=== PATIENT | female | born 1935 | race Caucasian/White ===

== ENCOUNTER 2020-04-11 10:03 | Inpatient (IN) | payer MEDICARE ==
[2020-04-11] MEDS ORDERED: PHENYLEPHRINE-NS 100 MCG/ML 10 ML SYRINGE ONE (10:07)
[2020-04-11] MEDS ORDERED: Dexamethasone 20 MG/5 ML VIAL ONE (10:07)
[2020-04-11] MEDS ORDERED: Rocuronium Bromide 10 MG/ML (10ML VIAL) ONE (10:07)
[2020-04-11] MEDS ORDERED: EPHEDRINE 25 MG/5 ML SYRINGE ONE (10:07)
[2020-04-11] MEDS ORDERED: Ondansetron PF 4 MG/2 ML Vial ONE (10:07)
[2020-04-11] MEDS ORDERED: PROPOFOL 200 MG/20 ML VIAL ONE (10:07)
[2020-04-11] MEDS ORDERED: Morphine 4 MG/ML VIAL ONE (11:04)
[2020-04-11] MEDS ORDERED: Fentanyl 100 MCG/2 ML VIAL ONE ×2 (11:32→13:43)
[2020-04-11] MEDS ORDERED: Neomycin-Polymyxin 1 ML AMP ONE (11:50)
[2020-04-11] MEDS ORDERED: Ondansetron HCl/PF 4 MG/2 ML Vial IVP PRN (12:13)
[2020-04-11] MEDS ORDERED: SUGAMMADEX SODIUM 200 MG/2 ML VIAL ONE (13:13)
[2020-04-11] MEDS ORDERED: Bupivacaine HCl 0.5%/Epinephrine 1:200,000/PF 30 ml Vial ONE (13:14)
[2020-04-11] MEDS ORDERED: Fleet Enema 133 ML BOT PR PRN (13:34)
[2020-04-11] MEDS ORDERED: Milk Of Magnesia 30 ML UDCUP PO PRN (13:34)
[2020-04-11] MEDS ORDERED: Ondansetron PF 4 MG/2 ML Vial IVP PRN ×2 (13:34→14:12)
[2020-04-11] MEDS ORDERED: Cepastat Lozenges 1 LOZ PO PRN (13:34)
[2020-04-11] MEDS ORDERED: Bisacodyl 10 MG SUPP PR PRN (13:34)
[2020-04-11] MEDS ORDERED: Ondansetron ODT 4 MG TAB PO PRN ×2 (13:34→14:12)
[2020-04-11] MEDS ORDERED: Sodium Chloride 0.9% 1,000 ML IV SCH (13:45)
[2020-04-11] MEDS ORDERED: hydrALAZINE 20 MG/ML VIAL SLOW IVP PRN (14:12)
[2020-04-11] MEDS ORDERED: Morphine 4 MG/ML VIAL SLOW IVP PRN (14:12)
[2020-04-11] MEDS ORDERED: Ketorolac Tromethamine 30 MG/ML VIAL IVP SCH ×2 (14:12→18:00)
[2020-04-11] MEDS ORDERED: Dextrose 5% in Water 1,000 ML IV PRN (14:12)
[2020-04-11] MEDS ORDERED: Morphine 2 MG/ML VIAL SLOW IVP PRN (14:12)
[2020-04-11] MEDS ORDERED: Dextrose 50% Abboject 50 ML SYRINGE SLOW IVP PRN (14:12)
--- NOTE | 2020-04-11 14:14 | CON ---
DATE OF CONSULTATION: 04/11/2020 HISTORY OF PRESENT ILLNESS: The patient is an 85-year-old white female, who lives at a custodial. She fell and injured her left hip area and had immediate pain in the left hip with some pain into the left buttocks and thigh. The patient was initially seen at [place]. X-ray showed an intertrochanteric fracture of the left proximal femur. There are no other complaints elsewhere. She was transferred here for further evaluation and management. PAST MEDICAL HISTORY: Medical illnesses: Hypothyroidism, hypertension, gout, dementia. CURRENT MEDICATIONS: 1. Allopurinol. 2. Baby aspirin a day. 3. Donepezil. 4. Levothyroxine. 5. Memantine. 6. Lisinopril and hydrochlorothiazide. PAST SURGICAL HISTORY: Hysterectomy. ALLERGIES: SOY LECITHIN. PHYSICAL EXAMINATION: GENERAL: The patient is pleasant female. She is able to cooperate with the exam. VITAL SIGNS: On arrival to the emergency room, temperature 97.8, pulse 84, respiratory rate 22, blood pressure 158/87. HEENT: Unremarkable for age. Cranial nerves 2 through 12 grossly intact. NECK: Has good range of motion without pain. LUNGS: Clear bilaterally. HEART: Regular rate and rhythm. ABDOMEN: Soft and nontender. Bowel sounds positive. : Not done. EXTREMITIES: The patient able to move both upper extremities without pain. Any intensive movement of the left lower extremity causes pain in the left hip. The patient is able to flex and extend her left ankle and toes well and has peripheral pulses. IMPRESSION: 1. Intertrochanteric fracture of the left hip. 2. Hypertension. 3. Dementia. 4. Gout. 5. Hypothyroidism. PLAN: The patient will require open reduction and internal fixation of the intertrochanteric fracture of the left hip. I will plan on using a trochanteric fixation nail. I discussed this with the patient, but also her daughter who has power of family law attorney and they agreed to the procedure. Job ID: [id number]
--- NOTE | 2020-04-11 15:27 | OP ---
DATE OF PROCEDURE: 04/11/2020 PREOPERATIVE DIAGNOSIS: Intertrochanteric fracture of the left hip. POSTOPERATIVE DIAGNOSIS: Intertrochanteric fracture of the left hip. PROCEDURE PERFORMED: Open reduction and internal fixation of intertrochanteric fracture of the left hip utilizing a trochanteric fixation nail. ANESTHESIA: General. DESCRIPTION OF PROCEDURE: The patient was given preoperative IV antibiotics, taken to the operating room, placed in supine position. Satisfactory general anesthesia was performed. The patient was then placed on the fracture table and all bony prominences were well padded. The traction was applied to a well-padded left foot and ankle. The lateral aspect of the left hip and thigh was sterilely prepped and draped in usual fashion. A 3-inch incision was made proximal to the greater trochanter, and under fluoroscopic visualization, a guidewire was placed through the greater trochanter into the proximal femur. It was then over-reamed and a [employer] trochanteric fixation nail that measured 11 mm in diameter x 170 mm in length was impacted through the greater trochanteric region, across the fracture and into the proximal aspect of the femoral shaft. Through a separate incision, using the guide, hole was made with the drill guide to the lateral aspect of the hip through the proximal aspect of the nail into the femoral neck and head. This was verified with C-arm. Appropriate sized nail was measured and a 95 mm helical blade was inserted through the proximal aspect of the nail and into the femoral neck and head and this was locked down with the locking device in the proximal aspect of the nail. A 5.0 locking screw was placed in the distal nail as well as the femur to provide additional stability. C-arm verified good placement of the screws and the columba and good alignment of the intertrochanteric fracture. Two wounds were then irrigated with antibiotic solution and then closed using #2 Vicryl for the deeper tissue including the iliotibial band, 0 Vicryl for the fat and subcutaneous tissue, and the skin was closed skin mike. Total of 30 mL of 0.5% Marcaine with epinephrine was utilized into the two incisions. Sterile dressing was applied. The patient was taken off the fracture table. She was awakened, extubated, and transferred to recovery room in stable condition. ESTIMATED BLOOD LOSS: 100 mL. COMPLICATIONS: None. Job ID: [id number]
--- NOTE | 2020-04-11 16:03 | RAD ---
LEFT HIP TWO VIEWS: History: Intraoperative films. FINDINGS: These show open reduction and internal fixation of intertrochanteric fracture with gamma type nail an d short stem intermedullary columba. IMPRESSION: Post op changes related to fixation of intertrochanteric fracture. POS: CRUZ
[2020-04-11] MEDS: Sodium Chloride 0.9% 1,000 ML IV SCH (16:36)
[2020-04-11] MEDS: Ketorolac Tromethamine 30 MG/ML VIAL IVP SCH ×2 (16:38→17:06)
[2020-04-11 17:43] VITALS: BMI 33.2
[2020-04-11] MEDS ORDERED: Cyclobenzaprine 10 MG TAB PO PRN (18:23)
[2020-04-11] MEDS ORDERED: traMADol HCl 50 MG TAB PO PRN (18:23)
[2020-04-11] MEDS: Ibuprofen 600 MG TAB PO SCH (18:30)
[2020-04-11] MEDS: Acetaminophen 325 MG TAB PO SCH ×2 (18:30→23:08)
--- NOTE | 2020-04-11 18:30 | HP ---
REQUESTING PHYSICIAN: Dr. Yepez. ATTENDING SURGEON: Dr. Mcdonough. CONSULTATIONS: Orthopedics, Dr. Pritchett. HISTORY OF PRESENT ILLNESS: The patient is an 85-year-old woman, who lives in a chcf in [place]. She reportedly had a fall this morning when she got up to go to the bathroom. She was able to contact her daughter, who notified EMS. She was brought to the emergency department in [place], where she underwent evaluation and examination and was noted to have a left intertrochanteric femur fracture, at which time, they transferred to our facility for admission and orthopedic evaluation. The patient denied loss of consciousness. Daughter states that she was acting appropriately and at baseline on the telephone and has had no changes since arriving at our facility. ALLERGIES: SOY AND LECITHIN. CURRENT MEDICATIONS: Allopurinol, baby aspirin, donepezil, HCTZ, levothyroxine, memantine. PAST MEDICAL HISTORY: Recurrent bladder infections, DJD, benign paroxysmal positional vertigo, dementia, hypertension, hypothyroid, and idiopathic gout. PAST SURGICAL HISTORY: Hysterectomy. PRIMARY CARE PROVIDER: Dr. Oscar Soares. SOCIAL HISTORY: The patient lives in a chcf/assisted living. She drinks wine daily. Denies drug or alcohol use. REVIEW OF SYSTEMS: A 10-point review of systems is negative unless otherwise stated. PHYSICAL EXAMINATION: VITAL SIGNS: Blood pressure 158/87, heart rate 84, respirations 22, oxygen saturation 99% on room air, and temperature is 97.8. GENERAL: The patient is resting comfortably in bed. She is awake, alert, conversant, and appropriate. Noah Coma Scale is 15. HEENT. Head is normocephalic and atraumatic. Eyes, extraocular motions are intact. PERRLA bilaterally. Ears are atraumatic without discharge. Nose is atraumatic without discharge. Oropharynx is clear. NECK: Nontender. Trachea is midline with no JVD. CHEST: Clear to auscultation with good inspiratory and expiratory effort. HEART: Regular rate and rhythm. ABDOMEN: Soft, flat, and nontender with active bowel sounds. EXTREMITIES: Neurovascularly intact x4. PELVIS: Stable with tenderness to palpation to the left hip consistent with her fracture. BACK: By report is atraumatic and nontender. LABORATORY FINDINGS: White blood cell count 7.9, hemoglobin 17.3, hematocrit 54.2, platelets 212. Sodium 144, potassium 3.8, chloride 104, CO2 of 28, BUN 8, creatinine 0.6, glucose 103. LFTs are unremarkable. Urinalysis is unremarkable. ASSESSMENT AND PLAN: 1. Status post ground level fall, transfer from [place]. 2. Left intertrochanteric femur fracture, will be evaluated by Dr. Pritchett with likely surgery today. 3. History of benign paroxysmal positional vertigo, dementia, hypertension, hypothyroid, and idiopathic gout. PLAN: Plan will be to admit the patient to the surgical floor. We will continue her n.p.o. status with plans for operative intervention today. Postoperatively, we will do physical and occupational therapy. Continue pain control, pulmonary toilet, gastritis and mechanical VTE prophylaxis and discuss placement at that time. The patient was evaluated in the emergency department with Dr. Mcdonough prior to this dictation. Job ID: [id number]
[2020-04-11 20:00] LABS: SARS-CoV-2 NAA Rapid Test Not Detected (NotDetected)
[2020-04-11] MEDS: CEFAZOLIN 2 GM in Premix Bag 1 BAG IVPB SCH (21:24)
[2020-04-11] MEDS: Ferrous Gluconate 324 MG TAB PO SCH (21:25)
[2020-04-11] MEDS: Aspirin 325 MG TAB PO SCH (21:25)
[2020-04-11] MEDS: Senokot S 8.6-50 MG TAB PO SCH (21:25)
[2020-04-11] MEDS: Famotidine 20 MG TAB PO SCH (21:25)
--- NOTE | 2020-04-11 21:49 | PDOC.CONS ---
- Consultation I have discussed the patient with the advanced practice provider and agree with the findings and plan of care annotated in their note dated April 11, 2020. I have examined the patient and reviewed the pertinent radiographic and laboratory findings. Briefly, 85-year-old female status post ground-level fall with no loss of consciousness. No other acute complaints. She is a group home resident, and is reported to have a history of dementia. Emergency department work-up demonstrates a left hip fracture. PLAN: Orthopedic surgery consulted and will likely perform ORIF today Admit to trauma service
[2020-04-12] MEDS: Ibuprofen 600 MG TAB PO SCH ×3 (03:29→18:30)
[2020-04-12] MEDS: Ketorolac Tromethamine 30 MG/ML VIAL IVP SCH (03:29)
[2020-04-12] MEDS: CEFAZOLIN 2 GM in Premix Bag 1 BAG IVPB SCH (03:31)
[2020-04-12] MEDS: Sodium Chloride 0.9% 1,000 ML IV SCH (03:55)
[2020-04-12] MEDS: traMADol HCl 50 MG TAB PO PRN ×2 (04:03→10:29)
[2020-04-12 05:08] LABS: #Eosinphils 0.1 thou/uL (0.0-0.7); #Monocytes 1.2 thou/uL (0.11-0.59); #Neutrophils 10.4 thou/uL (1.40-6.50); %Eosinophils 0.6 % (0.0-10.0); %Lymphocytes 7.8 % (21.0-51.0); %Monocytes 9.5 % (0.0-10.0); %Neutrophils 82.2 % (42.0-75.0); Hemoglobin 13.2 g/dL (12.0-16.0); Mean Corpuscular HGB CONC 32.5 g/dL (32.0-36.0); Mean Corpuscular Hemoglobin 30.3 pg (27.0-31.0); Mean Platelet Volume 7.3 fL (7.4-10.4); Platelet Count 179 thou/uL (130-400); RBC Distribution Width 11.6 % (11.5-14.5); Red Blood Cell (RBC) Count 4.35 mill/uL (4.20-5.40); White Blood Cell (WBC) Count 12.7 thou/uL (4.8-10.8)
[2020-04-12 05:28] LABS: Phosphorus 3.1 mg/dL (2.3-4.7)
[2020-04-12 05:29] LABS: Anion Gap 10 mmol/L (10-20); BUN (Urea Nitrogen) 14 mg/dL (9.8-20.1); Calc. Creatinine Clearance 75 mL/min (70-130); Calcium 8.5 mg/dL (7.8-10.44); Carbon Dioxide 25 mmol/L (23-31); Chloride 103 mmol/L (98-107); Estimated GFR-MDRD 82; Glucose 115 mg/dL (83-110); Magnesium 1.5 mg/dL (1.6-2.6); Potassium 3.8 mmol/L (3.5-5.1); Sodium 134 mmol/L (136-145)
[2020-04-12] MEDS: Acetaminophen 325 MG TAB PO SCH ×4 (06:38→23:27)
[2020-04-12] MEDS ORDERED: Magnesium 2 GM/50 ML 2 GM in Premix Bag 1 BAG IVPB SCH (06:45)
--- NOTE | 2020-04-12 07:14 | PDOC.BPN ---
- Brief Progress Note DATE OF SERVICE: 04/11/2020 SUBJECTIVE: Ms. Chavis remains in surgical floor. The patient is status post ground level fall. She sustained L hip fracture. She underwent L hip fracture fixation. Currently, she is awake and alert. Her vital signs have been stable. Her urine is adequate. OBJECTIVE: GENERAL: Currently, patient lying in bed comfortable with no acute respiratory distress. VITAL SIGNS: Stable. LUNGS: Clear bilaterally. HEART: Regular rate and rhythm. ABDOMEN: Soft, nondistended. EXTREMITIES: Neurovascularly intact x4. NEUROLOGY: GCS 15 post op dressing clean and dry Repeat h and h: Hb 8 ASSESSMENT: 1. Status post ground level fall. 2. L hip fracture status post repaired PLAN: 1. Continue supportive care. 2. Continue pain control. 3. Continue DVT prophylaxis. 5 anticipate discharge to rehabilitation facility in 24- 48 hours
[2020-04-12] MEDS ORDERED: Senokot S 8.6-50 MG TAB PO SCH (09:00)
[2020-04-12] MEDS: Famotidine 20 MG TAB PO SCH ×2 (10:30→20:33)
[2020-04-12] MEDS: Senokot S 8.6-50 MG TAB PO SCH ×2 (10:30→20:33)
[2020-04-12] MEDS: Multivitamin W/ Minerals 1 TAB PO SCH (10:30)
[2020-04-12] MEDS: Aspirin 325 MG TAB PO SCH ×2 (10:30→20:33)
[2020-04-12] MEDS: Ferrous Gluconate 324 MG TAB PO SCH ×2 (10:30→20:33)
[2020-04-12] MEDS: Polyethylene Glycol 3350 17 GM Packet PO SCH (10:31)
[2020-04-12] MEDS ORDERED: traMADol HCl 50 MG TAB PO PRN (15:26)
--- NOTE | 2020-04-12 17:13 | PRG ---
DATE OF SERVICE: 04/12/2020 SUBJECTIVE: The patient is currently on the surgical floor. She is status post ground level fall, in which, she sustained a left intertrochanteric femur fracture. She underwent open reduction and internal fixation of same yesterday. She tolerated that procedure well. Overnight, she had no reported issues. She was having some pain control issues this morning that somewhat limited her with Physical and Occupational therapy, but otherwise she is doing well. OBJECTIVE: VITAL SIGNS: Temperature is 97.6, heart rate 75, blood pressure 127/77, respirations 18, oxygen saturation is 95% on room air. GENERAL: The patient is resting comfortably in bed. She is awake, alert, conversant, and appropriate. HEENT: Unremarkable. LUNGS: Clear to auscultation bilaterally. HEART: Regular rate and rhythm. ABDOMEN: Soft and nontender with active bowel sounds. EXTREMITIES: Neurovascularly intact x4. Postop dressing is clean, dry, and intact. LABORATORY FINDINGS: White blood cell count 12.7, hemoglobin 13.2, hematocrit 40.5, platelets 179. Sodium 134, potassium 3.8, chloride 103, CO2 of 25, BUN 14, creatinine 0.68, magnesium 1.5, phosphorus 3.1. RADIOGRAPHS: There are no radiographs to review this morning. ASSESSMENT: 1. Status post ground level fall. 2. Status post open reduction and internal fixation of left intertrochanteric femur fracture. 3. History of benign paroxysmal positional vertigo, dementia, hypertension, hypothyroidism, and idiopathic gout. PLAN: Plan will be to encourage physical and occupational therapy. We will make adjustments to her pain regimen. Recheck labs in the morning and likely begin chemical VTE prophylaxis tomorrow. We will begin working on placement. The evaluation and examination were done with Dr. Quiñones during rounds this morning. Job ID: [id number]
--- NOTE | 2020-04-12 18:02 | PRG ---
DATE OF SERVICE: 04/12/2020 SUBJECTIVE: Mya is postoperative day #1 on open reduction and internal fixation of intertrochanteric fracture of the left hip using a trochanteric fixation nail. The patient has had fairly good pain control. OBJECTIVE: VITAL SIGNS: Temperature 97.8, pulse 73, respiratory rate 16, blood pressure 108/64, and O2 saturation 92% on room air. LABORATORY DATA: CBC, white count is 12.7, hemoglobin 13.2, hematocrit 40.5. The patient will work with Physical and Occupational Therapy to gradually ambulate. She may weightbear as tolerated on the left lower extremity. We will have Case Management work with the patient and her family as far as post-hospitalization placement. Job ID: [id number]
[2020-04-12] MEDS: traMADol HCl 50 MG TAB PO SCH ×2 (18:29→23:27)
--- NOTE | 2020-04-13 01:04 | PDOC.BPN ---
- Brief Progress Note DATE OF SERVICE: 04/12/2020 SUBJECTIVE: Ms. Chavis remains in surgical floor. The patient is status post ground level fall. She sustained L hip fracture. She underwent L hip fracture fixation. Currently, she is awake and alert. Her vital signs have been stable. Her urine is adequate. OBJECTIVE: GENERAL: Currently, patient lying in bed comfortable with no acute respiratory distress. VITAL SIGNS: Stable. LUNGS: Clear bilaterally. HEART: Regular rate and rhythm. ABDOMEN: Soft, nondistended. EXTREMITIES: Neurovascularly intact x4. NEUROLOGY: GCS 15 post op dressing clean and dry Repeat h and h: Hb 8 ASSESSMENT: 1. Status post ground level fall. 2. L hip fracture status post repaired PLAN: 1. Continue supportive care. 2. Continue pain control. 3. Continue DVT prophylaxis. 5 anticipate discharge to rehabilitation facility in 24- 48 hours
[2020-04-13] MEDS: Ibuprofen 600 MG TAB PO SCH ×3 (01:45→17:52)
[2020-04-13 05:57] LABS: #Eosinphils 0.9 thou/uL (0.0-0.7); #Lymphocytes 1.6 thou/uL (1.20-3.40); #Monocytes 1.2 thou/uL (0.11-0.59); #Neutrophils 7.1 thou/uL (1.40-6.50); %Basophils 0.4 % (0.0-1.0); %Eosinophils 8.2 % (0.0-10.0); %Lymphocytes 14.5 % (21.0-51.0); %Monocytes 10.7 % (0.0-10.0); %Neutrophils 66.2 % (42.0-75.0); Mean Corpuscular HGB CONC 33.1 g/dL (32.0-36.0); Mean Corpuscular Hemoglobin 31.1 pg (27.0-31.0); Mean Platelet Volume 7.8 fL (7.4-10.4); Platelet Count 161 thou/uL (130-400); RBC Distribution Width 11.6 % (11.5-14.5); Red Blood Cell (RBC) Count 3.86 mill/uL (4.20-5.40); White Blood Cell (WBC) Count 10.7 thou/uL (4.8-10.8)
[2020-04-13] MEDS: traMADol HCl 50 MG TAB PO SCH ×4 (06:01→23:57)
[2020-04-13] MEDS: Acetaminophen 325 MG TAB PO SCH ×4 (06:02→23:56)
[2020-04-13 06:16] LABS: Anion Gap 9 mmol/L (10-20); BUN (Urea Nitrogen) 19 mg/dL (9.8-20.1); Calc. Creatinine Clearance 69 mL/min (70-130); Calcium 8.2 mg/dL (7.8-10.44); Carbon Dioxide 24 mmol/L (23-31); Chloride 102 mmol/L (98-107); Estimated GFR-MDRD 75; Glucose 78 mg/dL (83-110); Magnesium 2.1 mg/dL (1.6-2.6); Phosphorus 2.7 mg/dL (2.3-4.7); Sodium 131 mmol/L (136-145)
[2020-04-13] MEDS: Famotidine 20 MG TAB PO SCH (08:15)
[2020-04-13] MEDS: Senokot S 8.6-50 MG TAB PO SCH ×2 (08:15→20:14)
[2020-04-13] MEDS: Aspirin 325 MG TAB PO SCH (08:15)
[2020-04-13] MEDS: Ferrous Gluconate 324 MG TAB PO SCH ×2 (08:16→20:14)
[2020-04-13] MEDS: Multivitamin W/ Minerals 1 TAB PO SCH (08:16)
[2020-04-13] MEDS: Polyethylene Glycol 3350 17 GM Packet PO SCH ×2 (08:16→08:17)
--- NOTE | 2020-04-13 17:30 | RAD ---
Exam:2 views left hip HISTORY: Status post internal fixation hardware placement. Left intertrochanteric fracture. COMPARISON: None FINDINGS: 2 views left hip demonstrate placement of internal fixation hardware. Fracture lucency is i dentified. Near anatomic alignment. Expected postoperative changes in the soft tissues. IMPRESSION: Near-anatomic alignment. Internal fixation of a left intertrochanteric. No fracture.
--- NOTE | 2020-04-13 17:37 | PRG ---
DATE OF SERVICE: 04/13/2020 This is Shahid Roman PA-C dictating a report for Crispin Quiñones DO. The patient was seen by Dr. Crispin Quiñones. SUBJECTIVE: Ms. Roque is an 85-year-old female, who is status post ORIF of the left intertrochanteric femur fracture, doing well. She is waiting for rehab placement. Currently, she is working with PT and OT. Our plan is to go to the [facility] once family to complete paperwork. Otherwise, she is stable for discharge. OBJECTIVE: VITAL SIGNS: Temperature is 98.5, blood pressure is 125/73, heart rate is 75, breathing is 18 times a minute, saturating is 92% on room air. GENERAL: An 85-year-old female sitting up in no acute distress. RESPIRATORY: Equal rise and fall. CARDIOVASCULAR: Strong pulses. ABDOMEN: Soft and nontender. PELVIS: She has a dry dressing to the left hip. EXTREMITIES: Moves her extremities well. Does have some pain report to the left hip. She has no edema. Strong pulses in her extremities. NEURO: Alert and oriented. LABORATORY DATA: From today, white blood cell count is 10.7, platelets 161, hemoglobin and hematocrit 12.0 and 36.3 respectively. Chemistry; sodium is 131, potassium is 4.0, chloride is 102, CO2 is 24, BUN is 19, creatinine is 0.74. ASSESSMENT: 1. Status post ground level fall. 2. Status post open reduction and internal fixation of the left intertrochanteric hip fracture. 3. History of benign paroxysmal positional vertigo, dementia, hypertension, hypothyroidism, and gout. PLAN: 1. We will change aspirin to 81 mg b.i.d. from 324. 2. Continue pain management. 3. Await for placement approval. 4. Continue to work with PT, OT. 5. Update as of 1700 hours. I was contacted by the nursing staff. States that the patient had a ground level fall. She was found on the floor in her room. She does complain of some left hip pain. Her vital signs remained stable. She has no other complaints. We will get plain films of the same. She is back in bed in stable condition, back to her mental status baseline. She did not strike her head nor her neck. Discussed with the bedside RN. Job ID: [id number] 04/13 3444 hours: XR hip with no acute changes, nearly anatomic alignment of the fracture post surgical. SANDRA
[2020-04-13] MEDS: Aspirin 81 mg Enteric Coated Tablet PO SCH (20:14)
[2020-04-14] MEDS: traMADol HCl 50 MG TAB PO SCH ×4 (05:43→23:25)
[2020-04-14] MEDS: Acetaminophen 325 MG TAB PO SCH ×4 (05:43→23:25)
[2020-04-14] MEDS: Ibuprofen 600 MG TAB PO SCH ×3 (05:45→18:51)
[2020-04-14] MEDS: Senokot S 8.6-50 MG TAB PO SCH ×2 (10:19→20:27)
[2020-04-14] MEDS: Polyethylene Glycol 3350 17 GM Packet PO SCH (10:19)
[2020-04-14] MEDS: Aspirin 81 mg Enteric Coated Tablet PO SCH ×2 (10:20→20:27)
[2020-04-14] MEDS: Ferrous Gluconate 324 MG TAB PO SCH ×2 (10:20→20:27)
[2020-04-14] MEDS: Multivitamin W/ Minerals 1 TAB PO SCH (10:20)
--- NOTE | 2020-04-14 18:54 | PRG ---
DATE OF SERVICE: 04/14/2020 SUBJECTIVE: The patient remains on the surgical floor. She is status post ground level fall, where she sustained a left intertrochanteric femur fracture. She underwent operative intervention of same and she did well. She is continuing to work with Physical and Occupational Therapy and is currently awaiting placement to the [facility]. The patient is tolerating a diet and her pain is controlled. OBJECTIVE: VITAL SIGNS: Temperature is 98.4, heart rate 83, blood pressure 154/83, respirations 16, oxygen saturation 100% on room air. GENERAL: The patient is resting comfortably in bed. She is awake, alert, conversant, and appropriate. LUNGS: Clear to auscultation bilaterally. HEART: Regular rate and rhythm. ABDOMEN: Soft, flat, and nontender with active bowel sounds. EXTREMITIES: Neurovascular intact x4. Postop dressing is clean, dry, and intact. DIAGNOSTIC STUDIES: There are no labs or radiographs reviewed this morning. ASSESSMENT: 1. Status post ground level fall. 2. Status post open reduction and internal fixation of left intertrochanteric femur fracture. 3. History of benign paroxysmal positional vertigo, dementia, hypertension, hypothyroidism, and gout. PLAN: Plan will be to continue supportive care. Encourage physical and occupational therapy and await placement decision, which last report was for her to be transferred tomorrow morning. The evaluation and examination were done with Dr. Quiñones during rounds this morning. Job ID: [id number]
[2020-04-15] MEDS: Ibuprofen 600 MG TAB PO SCH ×2 (03:40→09:14)
[2020-04-15] MEDS: traMADol HCl 50 MG TAB PO SCH ×2 (05:30→11:24)
[2020-04-15] MEDS: Acetaminophen 325 MG TAB PO SCH ×2 (05:30→11:24)
[2020-04-15] MEDS ORDERED: Allopurinol 300 MG TAB PO SCH (09:00)
[2020-04-15] MEDS ORDERED: Non-Formulary Item 1 EACH (Memantine Hcl [Namenda Xr] 28 MG) PO SCH (09:00)
[2020-04-15] MEDS ORDERED: Donepezil HCl 10 MG TAB PO SCH (09:00)
[2020-04-15] MEDS ORDERED: Lisinopril/Hydrochlorothiazide 20/25 mg Tablet PO SCH (09:00)
[2020-04-15] MEDS: Senokot S 8.6-50 MG TAB PO SCH (09:06)
[2020-04-15] MEDS: Ferrous Gluconate 324 MG TAB PO SCH (09:06)
[2020-04-15] MEDS: Aspirin 81 mg Enteric Coated Tablet PO SCH (09:06)
[2020-04-15] MEDS: Multivitamin W/ Minerals 1 TAB PO SCH (09:08)
[2020-04-15] MEDS: Polyethylene Glycol 3350 17 GM Packet PO SCH (09:08)
[2020-04-15 10:53] VITALS: BP 125/75; TEMP 97.8
--- NOTE | 2020-04-15 16:42 | DIS ---
DATE OF ADMISSION: 04/11/2020 DATE OF DISCHARGE: 04/15/2020 DISCHARGE ATTENDING: Crispin Quiñones DO CONSULTS: Orthopedic Surgery, Dr. Pritchett. PROCEDURES: On 04/11/2020, open reduction and internal fixation of intertrochanteric fracture of the left hip utilizing a trochanteric fixation nail. PRIMARY DIAGNOSES: 1. Intertrochanteric fracture of the left hip, status post ground-level fall. 2. History of benign paroxysmal positional vertigo, dementia, hypertension, hypothyroidism, and idiopathic gout. DISCHARGE MEDICATIONS: 1. Acetaminophen 650 mg q.6 hours. 2. Aspirin 81 mg b.i.d. for VTE prophylaxis. 3. Dulcolax for constipation. 4. Cepastat lozenges. 5. Ferrous gluconate 324 mg oral twice a day. 6. DuoNebs as needed. 7. Milk of magnesia as needed. 8. MiraLAX as needed. 9. Senokot as needed. 10. Tramadol 50 mg p.o. one tab q.6 hours as needed for pain, #20, no refills. The [place] prescription monitoring program was accessed and there was no recent prescriptions filled. 11. Ibuprofen 600 mg q.8 hours p.r.n. pain. 12. Memantine XR 28 mg oral daily. 13. Aricept 1 tablet daily. 14. Levothyroxine 25 mcg daily. 15. Allopurinol daily. 16. Lisinopril/hydrochlorothiazide 20/25 mg one tablet oral daily. 17. The patient's daily 81 mg aspirin has been discontinued while she is on VTE prophylaxis with 81 mg b.i.d. After 2 weeks, the patient may continue her normal dose of 81 mg once daily. HISTORY OF PRESENT ILLNESS AND HOSPITAL COURSE: This is an 85 year-old lady who lives in a senior living in [place], who had a fall when she got up to go to the restroom. The patient was taken to [place] [facility], where she was evaluated and found to have a left intertrochanteric femur fracture. The patient was then transferred to [facility] for definitive care. The patient did not have any loss of consciousness. The patient's pain was well controlled pre and postop. The patient was able to tolerate a regular diet. The patient's pain was well controlled. On the day of discharge, the patient was evaluated by Dr. Quiñones. The patient's vital signs were stable and her exam was unremarkable including cardiopulmonary and GI exam. The patient was deemed stable for discharge to the [facility] for continued physical and occupational therapy. DISPOSITION: Stable. DISCHARGE INSTRUCTIONS: 1. Location: [facility]. 2. Activity: As tolerated. Posterior hip precautions. 3. Followup: With Orthopedic Surgery in 10 days. No need to follow up with Trauma Services. Please call for any questions. Job ID: [id number] [facility]
[2020-04-16] MEDS ORDERED: Levothyroxine Sodium 25 MCG TAB PO SCH (06:00)
== END 2020-04-15 11:40 | DRG 482 ==
LOC: ERS 10:03 → SDC 11:58 → SJJU 14:12
PROVIDERS: ADMIT Surgery; ATTEND Surgery
PROC: 0QS734Z Reposition Left Upper Femur with Internal Fixation Device, Percutaneous Approach (ICD-10-PCS; principal; 2020-04-12)
DX: S72.142A Displaced intertrochanteric fracture of left femur, initial encounter for closed fracture (principal); H81.10 Benign paroxysmal vertigo, unspecified ear; F03.90 Unspecified dementia, unspecified severity, without behavioral disturbance, psychotic disturbance, mood disturbance, and anxiety; I10 Essential (primary) hypertension; M10.00 Idiopathic gout, unspecified site; E03.9 Hypothyroidism, unspecified; W18.30XA Fall on same level, unspecified, initial encounter; Z11.59 Encounter for screening for other viral diseases; Z91.018 Allergy to other foods; Z88.8 Allergy status to other drugs, medicaments and biological substances; Z79.82 Long term (current) use of aspirin; Z79.899 Other long term (current) drug therapy; Z90.49 Acquired absence of other specified parts of digestive tract; Y92.129 Unspecified place in nursing home as the place of occurrence of the external cause; Z79.890 Hormone replacement therapy
CPT/HCPCS: 36415; 36416; 76000; 80048; 83735; 84100; 85025; 96374; C1713; G0390; J0670; J0690; J1100; J1885; J2270; J2405; J2704; J3010; J3475; U0002